=== PATIENT | female | born 1975 | race Caucasian/White ===

== ENCOUNTER 2024-12-25 16:47 | Emergency (ER) | payer MEDICAID, OTHER ==
[~2024-12-25] VITALS: Ht 167.6 cm; Wt 77.0 kg
[2024-12-25 17:07] VITALS: BP 145/82; PULSE 96; RESP 14; TEMP 98.5; O2SAT 98
--- NOTE | 2024-12-25 17:40 | ECG ---
[facility] Test Date: 2024-12-25 Test Time: 16:55:22 Pat Name: NANCY MCINTOSH Department: Room: Gender: F [employer] Specialist: SALAS : 1975 Requested By: LINDSAY ROMAN Order Number: [id number] Reading MD: Venkatesh Alexander Measurements Intervals [place] Rate: 84 P: 49 NE: 143 QRS: 27 QRSD: 87 T: 23 QT: 367 QTc: 434 Interpretive Statements Sinus rhythm Low voltage, precordial leads Borderline T abnormalities, anterior leads Electronically Signed On 12-25-2024 17:58:49 PDT by Venkatesh Alexander Please click the below link to view image of tracing.
== END 2024-12-25 17:45 | disposition left against medical advice (07) ==
LOC: EDBD 16:47 → ER 16:47 → EDUNIT# 16:47 → ER 17:45
DX: R07.89 Other chest pain (principal); Z53.21 Procedure and treatment not carried out due to patient leaving prior to being seen by health care provider
CPT/HCPCS: 93005